=== PATIENT | male | born 1950 | race Caucasian/White ===

== ENCOUNTER 2023-12-16 09:29 | Emergency (ER) | payer MEDICARE ==
[~2023-12-16] VITALS: Ht 182.9 cm; Wt 118.2 kg
[~2023-12-16 09:29] MED LIST: COREG 25MG25 MG/TAB PO; HCTZ 25MG TAB25 MG PO; MASON NATURAL2000 IU PO; XARELTO20 MG PO
[2023-12-16] MEDS ORDERED: NS 1,000 ML IV ONE (10:00)
[2023-12-16] MEDS ORDERED: Morphine 4 MG/ML VIAL IV ONE ×2 (10:00→13:15)
[2023-12-16 10:06] LABS: BASO % 0.2 % (0.0-2.0); EOS % 0.3 % (0.0-4.0); GRAN # 8.1 K/mm3 (1.4-6.5); GRAN % 80.3 % (42.2-75.2); HEMATOCRIT 36.9 % (42.0-52.0); HEMOGLOBIN 12.3 g/dl (13.5-18.0); LYMPH # 1.3 K/mm3 (1.2-3.4); LYMPH % 12.6 % (20.0-51.0); MEAN CELL VOLUME 94 fl (80.0-100.0); MEAN CORPUSCULAR HEMOGLOBIN 31 pg (27-31); MEAN CORPUSCULAR HGB CONC 33 g/dl (33.0-37.0); MONO # 0.6 K/mm3 (0.1-0.6); PLATELET COUNT 106 K/mm3 (130-400); RED BLOOD COUNT 3.92 M/mm3 (4.20-5.60); REDCELL DISTRIBUTION WIDTH-CV 13.3 % (11.5-14.5)
[2023-12-16 10:25] LABS: INR 1.8 (0.8-3.0); PROTHROMBIN TIME 18.9 SECONDS (9.7-12.8)
[2023-12-16 10:28] LABS: PARTIAL THROMBOPLASTIN TIME 34.3 SECONDS (26.0-37.0)
[2023-12-16 11:13] LABS: ALBUMIN 3.3 g/dL (3.4-4.8); BILIRUBIN,TOTAL 1.1 mg/dL (0.2-1.2); CALCIUM 8.7 mg/dL (8.4-10.2); CREATININE, serum 1.02 mg/dL (0.72-1.25); POTASSIUM 3.6 mEq/L (3.5-4.5); TOTAL PROTEIN 6.1 g/dl (6.2-8.1)
[2023-12-16] MEDS ORDERED: Iohexol 300 - 100 ML VIAL IV ONE (11:24)
[2023-12-16] MEDS ORDERED: NS 100 ML IV SCH (11:26)
[2023-12-16] MEDS ORDERED: Prothrombin Complex Human 2,000 UNITS in Water For Injection,Sterile 80 ML IV ONE (13:00)
[2023-12-16 14:30] VITALS: BP 155/94; PULSE 89; TEMP 98.4
== END 2023-12-16 14:30 | disposition short-term general hospital (02) ==
LOC: COL.ER 09:29
PROVIDERS: Emergency Medicine
DX: S06.6XAA Traumatic subarachnoid hemorrhage with loss of consciousness status unknown, initial encounter (principal); S30.0XXA Contusion of lower back and pelvis, initial encounter; S80.12XA Contusion of left lower leg, initial encounter; S90.32XA Contusion of left foot, initial encounter; I10 Essential (primary) hypertension; Z79.01 Long term (current) use of anticoagulants; W19.XXXA Unspecified fall, initial encounter
CPT/HCPCS: J2270; J7030; J7168; Q9967